=== PATIENT | male | born 1975 | race African-American/Black ===

== ENCOUNTER 2020-02-21 12:36 | Emergency (ER) | payer MEDICAID ==
[~2020-02-21] VITALS: Ht 170.2 cm; Wt 56.6 kg
[2020-02-21 12:39] VITALS: BP 110/87
--- NOTE | 2020-02-21 12:58 | NUR ---
PT CAME IN CO OF DRY COUGH AND SORE THROAT. PT SAYS HE WAS IN CONTACT WITH SOMEONE WHO POTENTIALLY HAD COVID. PT IS AFEBRILE AND 99% ON ROOM AIR. [facility].
== END 2020-02-21 14:02 | disposition home or self-care (01) ==
LOC: ED 13:09
DX: Z20.828 Contact with and (suspected) exposure to other viral communicable diseases (principal); B34.9 Viral infection, unspecified; F17.200 Nicotine dependence, unspecified, uncomplicated
CPT/HCPCS: 99281